=== PATIENT | male | born 1960 | race Caucasian/White ===

== ENCOUNTER 2021-02-26 08:31 | Day surgery (SDC) | payer MEDICARE, MEDICAID ==
[2021-02-26] MEDS ORDERED: Propofol 200 MG/20 ML SDV ONE (08:39)
[2021-02-26] MEDS ORDERED: fentaNYL 100 MCG/2 ML SDV ONE (08:39)
[2021-02-26] MEDS: Lactated Ringers 1,000 ML IV SCH (09:39)
--- NOTE | 2021-02-27 14:28 | OR ---
PREOPERATIVE DIAGNOSIS: Colonoscopy for screening cancer. Unknown if the patient has had a history of polyps. POSTOPERATIVE DIAGNOSIS: Colonoscopy for screening cancer. Unknown if the patient has had a history of polyps. PROCEDURE PERFORMED: Total flexible colonoscopy. ANESTHESIA: MAC anesthesia. COMPLICATIONS: None apparent. BLOOD LOSS: None. FINDINGS: 1. No polyps were identified. 2. Large amount of liquid stool with some fibrous material in the colon precluding 100% evaluation of the mucosa. I do not feel that there were any large polyps that were missed, although it is possible that moderate- size polyp could have been missed in the sigmoid colon. Start time 1032, cecum 1037, stop 1050. BOWEL PREP: [place] class 1. INDICATIONS: Mr. Kruger is a 60-year-old male with a history of stroke who is unable to provide much history. He is here for a colonoscopy. Apparently, his last colonoscopy was in 2017. He denies bloody stools. There is no family history of colon cancer documented in his medical record. DETAILS OF PROCEDURE: Informed consent was obtained. The patient was brought to the procedure room, placed in left lateral decubitus position. MAC anesthesia was induced by Anesthesia colleagues. The colonoscope was introduced in the rectum and advanced all the way to the cecum. The appendiceal orifice and ileocecal valve were photographed. The colonoscope was then slowly withdrawn. There was a large amount of liquid stool with some fibrous material throughout the colon. Retroflexed view was obtained. The colonoscope was removed. PATHOLOGY: None. RECOMMENDATION: Repeat colonoscopy in 3 years. Due to the patient's history of stroke and his non-decisional status, I suspect that it is just difficult for us to get a completely cleaned out colon. I think that a short interval repeat colonoscopy is unlikely to yield a significantly better prep. For this reason, I am recommending a repeat scope in 3 years, at which point I would expect if any small polyps were missed, they may be able to be visualized despite what I would anticipate will be again somewhat inadequate prep. RKM: 02/26/2021 10:56:57 MODL: 02/26/2021 12:54:59 /[id number]
== END 2021-02-26 12:05 | disposition home or self-care (01) ==
LOC: VM.SDS 08:31
PROVIDERS: ATTEND Student in an Organized Health Care Education/Training Program
DX: Z12.11 Encounter for screening for malignant neoplasm of colon (principal); E87.5 Hyperkalemia; I12.9 Hypertensive chronic kidney disease with stage 1 through stage 4 chronic kidney disease, or unspecified chronic kidney disease; N18.30 Chronic kidney disease, stage 3 unspecified; G10 Huntington's disease; E78.5 Hyperlipidemia, unspecified; K21.9 Gastro-esophageal reflux disease without esophagitis; I73.9 Peripheral vascular disease, unspecified; Z90.49 Acquired absence of other specified parts of digestive tract; Z86.73 Personal history of transient ischemic attack (TIA), and cerebral infarction without residual deficits; Z79.899 Other long term (current) drug therapy; Z79.82 Long term (current) use of aspirin; Z88.8 Allergy status to other drugs, medicaments and biological substances; Z98.890 Other specified postprocedural states
CPT/HCPCS: 00812; J2704; J3010; J7120

== ENCOUNTER 2022-01-13 14:22 | Emergency (ER) | payer MEDICARE, MEDICAID ==
[2022-01-13] MEDS ORDERED: Iopamidol 612 MG/ML 100 ML Bottle IVPUSH ONE (15:07)
[2022-01-13 15:19] LABS: ANION GAP 18.7 mmol/L (5-15)
[2022-01-13] MEDS ORDERED: Ondansetron 4 MG/2 ML SDV IVPUSH PRN (15:35)
[2022-01-13] MEDS ORDERED: Sodium Chloride 0.9% 1,000 ML IV SCH (19:15)
== END 2022-01-13 21:03 | disposition short-term general hospital (02) ==
LOC: SUPCPDRO 14:22 → VM.ED 14:22
DX: T18.108A Unspecified foreign body in esophagus causing other injury, initial encounter (principal); E78.00 Pure hypercholesterolemia, unspecified; I10 Essential (primary) hypertension; Z79.899 Other long term (current) drug therapy; Z88.1 Allergy status to other antibiotic agents; Z79.82 Long term (current) use of aspirin; Z90.49 Acquired absence of other specified parts of digestive tract; Z20.822 Contact with and (suspected) exposure to COVID-19
CPT/HCPCS: 36415; 70491; 71045; 80053; 85025; 96374; 99284; 99285-25; J2405; Q9967; U0002

== ENCOUNTER 2024-05-06 12:49 | Emergency (ER) | payer MEDICARE, MEDICAID ==
[~2024-05-06 12:49] MED LIST: Sodium Chloride 0.9% 10 ML Syringe FLUSH PRN
[2024-05-06 13:13] LABS: BASOPHILS PERCENT AUTO 0.6 % (0.2-1.2); EOSINOPHILS ABSOLUTE AUTO 0.3 x10^3/uL (0.0-0.5); EOSINOPHILS PERCENT AUTO 4.8 % (0.0-4.0); HEMATOCRIT 45.2 % (40.0-52.0); HEMOGLOBIN 15.6 g/dL (14.0-18.0); IMMATURE GRAN ABSOLUTE AUTO 0.01 x10^3/uL (0.00-0.07); LYMPHOCYTES PERCENT AUTO 27.9 % (25.0-50.0); MEAN CORPUSCULAR HEMOGLOBIN 30.4 pg (26.0-32.0); MEAN CORPUSCULAR HGB CONC 34.5 g/dL (32.0-36.0); MEAN CORPUSCULAR VOLUME 87.9 fL (78.0-93.0); MONOCYTES ABSOLUTE AUTO 0.6 x10^3/uL (0.0-0.8); NEUTROPHILS ABSOLUTE AUTO 4.2 x10^3/uL (1.8-7.7); NEUTROPHILS PERCENT AUTO 58.6 % (50.0-80.0); PLATELET COUNT,PLT 194 x10^3/uL (130-400); RED BLOOD CELL COUNT 5.14 x10^6/uL (4.5-6.0); WHITE BLOOD CELL COUNT,WBC 7.1 x10^3/uL (4.0-10.0)
[2024-05-06 13:25] LABS: PROTHROMBIN TIME 9.7 SEC (8.9-11.5); PTT,PARTIAL THROMBOPLSTIN TIME 24.6 SEC (21.9-33.8)
[2024-05-06 13:37] LABS: A/G RATIO 1.03; ALANINE AMINOTRANSFERASE,ALT 39 U/L (16-63); ALBUMIN 3.4 g/dL (3.4-5.0); ALKALINE PHOSPHATASE 88 U/L (46-116); ASPARTATE AMNIOTRANSFERASE,AST 16 U/L (15-37); BILIRUBIN TOTAL 0.5 mg/dL (0.2-1.0); BLOOD UREA NITROGEN,BUN 18 mg/dL (7-18); CALCIUM 9.3 mg/dL (8.5-10.1); CARBON DIOXIDE,CO2 28 mmol/L (21-32); CHLORIDE,CL 105 mmol/L (98-107); CREATININE 1.3 mg/dL (0.70-1.30); GLUCOSE RANDOM 115 mg/dL (70-99); MAGNESIUM 1.9 mg/dL (1.8-2.4); POTASSIUM,K 3.6 mmol/L (3.5-5.1); PROTEIN TOTAL,TP 6.7 g/dL (6.4-8.2); SODIUM,NA 143 mmol/L (136-145)
[2024-05-06 13:38] LABS: ANION GAP 13.6 mmol/L (5-15); C-REACTIVE PROTEIN < 0.50 mg/dL (<=0.50); ESTIMATED GFR 61 mL/min (>=60); ETHANOL BLOOD MEDICAL < 3 mg/dL (0-3)
[2024-05-06] MEDS ORDERED: Tenecteplase 50 MG Kit ONE (13:47)
== END 2024-05-06 14:15 | disposition short-term general hospital (02) ==
LOC: VM.ED 12:49
DX: I69.392 Facial weakness following cerebral infarction (principal); I12.9 Hypertensive chronic kidney disease with stage 1 through stage 4 chronic kidney disease, or unspecified chronic kidney disease; N18.9 Chronic kidney disease, unspecified; E78.00 Pure hypercholesterolemia, unspecified; K21.9 Gastro-esophageal reflux disease without esophagitis; Z90.49 Acquired absence of other specified parts of digestive tract; Z88.8 Allergy status to other drugs, medicaments and biological substances; Z79.82 Long term (current) use of aspirin; Z79.899 Other long term (current) drug therapy
CPT/HCPCS: 36415; 37195; 70450; 80053; 80307; 83735; 84484; 85025; 85610; 85730; 86140; 93010; 99284; 99285-25; J3101